=== PATIENT | male | born 1980 | race Caucasian/White ===

== ENCOUNTER 2019-03-11 19:33 | Emergency (ER) | payer OTHER ==
[~2019-03-11 19:33] MED LIST: ALBU90OI INH; AMOX500 PO; AZIT250 PO; BENZ100A PO; CODGUAEL PO; DOXY100 PO; HYDACE5 PO; IBUP800 PO; NAPR500 PO; NEOPOLHYD OU; PRED20 PO
== END 2019-03-11 20:04 | disposition left against medical advice (07) ==
LOC: ER 19:33
DX: Z53.21 Procedure and treatment not carried out due to patient leaving prior to being seen by health care provider (principal)

== ENCOUNTER 2019-11-30 19:35 | Emergency (ER) | payer SELFPAY ==
[~2019-11-30] VITALS: Ht 170.2 cm; Wt 76.2 kg
[2019-11-30] MEDS ORDERED: BENZ100A PO (21:48)
== END 2019-11-30 22:01 | disposition home or self-care (01) ==
LOC: ER 19:35
DX: J40 Bronchitis, not specified as acute or chronic (principal); I10 Essential (primary) hypertension; F17.200 Nicotine dependence, unspecified, uncomplicated
CPT/HCPCS: 99282

== ENCOUNTER 2020-08-12 23:16 | Emergency (ER) | payer SELFPAY | END 2020-08-12 23:57 | disposition left against medical advice (07) | LOC: ER 23:16 | DX: Z53.21 Procedure and treatment not carried out due to patient leaving prior to being seen by health care provider (principal) ==

== ENCOUNTER 2023-02-28 08:45 | Emergency (ER) | payer OTHER ==
[~2023-02-28] VITALS: Ht 175.3 cm; Wt 104.3 kg
[2023-02-28 09:30] VITALS: BP 130/95
[2023-02-28] MEDS ORDERED: CEPH500 PO (11:09)
== END 2023-02-28 11:10 | disposition home or self-care (01) ==
LOC: ER 08:45
DX: L02.411 Cutaneous abscess of right axilla (principal); F17.200 Nicotine dependence, unspecified, uncomplicated; M19.90 Unspecified osteoarthritis, unspecified site
CPT/HCPCS: 10060; 99283-25